=== PATIENT | male | born 1990 | race Caucasian/White ===

== ENCOUNTER 2023-07-26 09:40 | Inpatient (IN) | payer OTHER, MEDICAID ==
[2023-07-26] VITALS (8 sets, daily range): BP systolic 111–132; BP diastolic 71–79; PULSE 62–71; RESP 18–20; TEMP 97.6–98.2; O2SAT 95–100
[~2023-07-26] VITALS: Ht 165.1 cm; Wt 75.3 kg
[2023-07-26] MEDS ORDERED: AMPICILLIN/SULBACTAM 3 GM in NACL 0.9% 100 ML IV ONE (10:20)
[2023-07-26] MEDS ORDERED: NACL 0.9% 1,000 ML IV SCH (10:20)
[2023-07-26] MEDS ORDERED: AZITHROMYCIN 250 MG TAB PO ONE (10:20)
[2023-07-26] MEDS ORDERED: KETOROLAC 30 MG/ML VIAL IVP ONE (10:30)
[2023-07-26] MEDS ORDERED: diphenhydrAMINE 50 MG/ML VIAL IVP ONE (10:30)
[2023-07-26 10:40] LABS: BASOPHILS % (AUTO) 0.1 % (0.0-2.0); EOSINOPHILS # (AUTO) 0.1 K/uL (0-0.4); EOSINOPHILS % (AUTO) 0.4 % (0.0-4.0); HEMATOCRIT 38.9 % (36-52); HEMOGLOBIN 12.8 g/dL (12.0-18.0); LYMPHOCYTES # (AUTO) 0.8 K/uL (2.0-11.5); LYMPHOCYTES % (AUTO) 5.8 % (20.5-51.1); MEAN CORPUSCULAR HEMOGLOBIN 30 pg (27-31); MEAN CORPUSCULAR HGB CONC 33 g/dL (33-37); MEAN CORPUSCULAR VOLUME 91.3 fL (80-94); MONOCYTES # (AUTO) 0.8 K/uL (0.8-1.0); MONOCYTES % (AUTO) 5.3 % (1.7-9.3); NEUTROPHILS # (AUTO) 12.8 K/uL (1.8-7.7); NEUTROPHILS % (AUTO) 88.4 % (42.2-75.2); PLATELET COUNT (AUTO) 162 K/uL (140-450); RED BLOOD CELL COUNT(AUTO) 4.26 MIL/uL (4.20-6.10); RED CELL DISTRIBUTION WIDTH 13.1 % (11.6-13.7); WHITE BLOOD COUNT (AUTO) 14.5 K/uL (4.8-10.8)
[2023-07-26 10:56] LABS: ALBUMIN 3.3 g/dL (3.4-5.0); ANION GAP 12.9 (8-16); CALCIUM 8.2 mg/dL (8.5-10.1); CARBON DIOXIDE 26.2 mmol/L (21-32); CREATININE 0.9 mg/dL (0.6-1.3); POTASSIUM 3.1 mmol/L (3.5-5.1); TOTAL BILIRUBIN 0.5 mg/dL (0.0-1.0); TOTAL PROTEIN, SERUM 6.9 g/dL (6.4-8.2)
[2023-07-26] MEDS ORDERED: POTASSIUM CHLORIDE 10 MEQ TABER PO ONE (11:05)
[2023-07-26 11:07] LABS: LACTIC ACID 1.4 mmol/L (0.4-2.0)
[2023-07-26] MEDS ORDERED: AMPICILLIN/SULBACTAM 3 GM VIAL ONE (11:07)
[2023-07-26] MEDS ORDERED: ACETAMINOPHEN 325 MG TAB PO PRN (14:10)
[2023-07-26] MEDS ORDERED: ONDANSETRON 4 MG/2 ML VIAL IVP PRN (14:10)
[2023-07-26] MEDS: NACL 0.9% 1,000 ML IV SCH ×2 (14:52→23:43)
[2023-07-26] MEDS: MORPHINE SULFATE 2 MG/ML SYR IVP PRN (15:44)
[2023-07-26] MEDS ORDERED: AMPICILLIN/SULBACTAM 1.5 GM VIAL ONE ×2 (18:11→23:34)
[2023-07-26] MEDS: AMPICILLIN/SULBACTAM 1.5 GM in NACL 0.9% 50 ML IV SCH ×2 (18:25→23:39)
[2023-07-27] MEDS: MORPHINE SULFATE 2 MG/ML SYR IVP PRN ×4 (03:48→20:39)
[2023-07-27] MEDS ORDERED: AMPICILLIN/SULBACTAM 1.5 GM VIAL ONE (05:09)
[2023-07-27] MEDS: AMPICILLIN/SULBACTAM 1.5 GM in NACL 0.9% 50 ML IV SCH ×3 (05:14→17:02)
[2023-07-27 07:10] LABS: BASOPHILS % (AUTO) 0.1 % (0.0-2.0); EOSINOPHILS % (AUTO) 0.3 % (0.0-4.0); HEMATOCRIT 38.3 % (36-52); HEMOGLOBIN 12.8 g/dL (12.0-18.0); LYMPHOCYTES # (AUTO) 1.1 K/uL (2.0-11.5); LYMPHOCYTES % (AUTO) 9.3 % (20.5-51.1); MEAN CORPUSCULAR HEMOGLOBIN 30 pg (27-31); MEAN CORPUSCULAR HGB CONC 34 g/dL (33-37); MONOCYTES # (AUTO) 0.8 K/uL (0.8-1.0); MONOCYTES % (AUTO) 6.6 % (1.7-9.3); NEUTROPHILS # (AUTO) 10.3 K/uL (1.8-7.7); NEUTROPHILS % (AUTO) 83.7 % (42.2-75.2); PLATELET COUNT (AUTO) 165 K/uL (140-450); RED BLOOD CELL COUNT(AUTO) 4.21 MIL/uL (4.20-6.10); RED CELL DISTRIBUTION WIDTH 13.4 % (11.6-13.7); WHITE BLOOD COUNT (AUTO) 12.3 K/uL (4.8-10.8)
[2023-07-27 07:45] LABS: ALBUMIN 2.9 g/dL (3.4-5.0); ANION GAP 11.6 (8-16); CARBON DIOXIDE 27.3 mmol/L (21-32); CREATININE 0.8 mg/dL (0.6-1.3); MAGNESIUM 1.5 mg/dL (1.8-2.4); PHOSPHORUS 2.2 mg/dL (2.5-4.9); POTASSIUM 3.9 mmol/L (3.5-5.1); TOTAL BILIRUBIN 0.5 mg/dL (0.0-1.0); TOTAL PROTEIN, SERUM 6.4 g/dL (6.4-8.2)
[2023-07-27 08:00] VITALS: BP 126/75; PULSE 60; PULSE 61; RESP 20; TEMP 97.6; O2SAT 100
[2023-07-27] MEDS: MAGNESIUM OXIDE 400 MG TAB PO PRN (10:37)
[2023-07-27] MEDS: NACL 0.9% 1,000 ML IV SCH ×2 (10:39→20:44)
[2023-07-27 16:00] VITALS: BP 114/63; PULSE 72; RESP 20; TEMP 99; O2SAT 100
[2023-07-27 20:00] VITALS: PULSE 72; RESP 18; O2SAT 95
[2023-07-27] MEDS ORDERED: VANCOMYCIN PER PHARMACY MC PRN (20:10)
[2023-07-27 21:40] VITALS: BP 157/77; PULSE 80; RESP 19; TEMP 98; O2SAT 95
[2023-07-28] MEDS ORDERED: AMPICILLIN/SULBACTAM 3 GM VIAL ONE ×2 (00:46→05:13)
[2023-07-28] MEDS: AMPICILLIN/SULBACTAM 3 GM in NACL 0.9% 100 ML IV SCH ×4 (00:52→17:03)
[2023-07-28] MEDS ORDERED: VANCOMYCIN 1.25GM PREMIX 250 ML IV ONE (02:00)
[2023-07-28] MEDS ORDERED: VANCOMYCIN 1,000 MG VIAL ONE (03:26)
[2023-07-28 04:00] VITALS: BP 124/65; PULSE 62; RESP 16; TEMP 97.9; O2SAT 100
[2023-07-28] MEDS: NACL 0.9% 1,000 ML IV SCH (06:10)
[2023-07-28 06:30] LABS: BASOPHILS % (AUTO) 0.1 % (0.0-2.0); EOSINOPHILS % (AUTO) 0.4 % (0.0-4.0); HEMATOCRIT 37.4 % (36-52); HEMOGLOBIN 12.6 g/dL (12.0-18.0); LYMPHOCYTES # (AUTO) 1.3 K/uL (2.0-11.5); LYMPHOCYTES % (AUTO) 11.5 % (20.5-51.1); MEAN CORPUSCULAR HEMOGLOBIN 31 pg (27-31); MEAN CORPUSCULAR HGB CONC 34 g/dL (33-37); MEAN CORPUSCULAR VOLUME 90.8 fL (80-94); MONOCYTES # (AUTO) 0.9 K/uL (0.8-1.0); MONOCYTES % (AUTO) 8.3 % (1.7-9.3); NEUTROPHILS # (AUTO) 8.7 K/uL (1.8-7.7); NEUTROPHILS % (AUTO) 79.7 % (42.2-75.2); PLATELET COUNT (AUTO) 179 K/uL (140-450); RED BLOOD CELL COUNT(AUTO) 4.12 MIL/uL (4.20-6.10); RED CELL DISTRIBUTION WIDTH 12.9 % (11.6-13.7)
[2023-07-28 07:05] LABS: ALBUMIN 2.7 g/dL (3.4-5.0); ANION GAP 8.7 (8-16); CALCIUM 8.1 mg/dL (8.5-10.1); CARBON DIOXIDE 28.1 mmol/L (21-32); CREATININE 0.9 mg/dL (0.6-1.3); MAGNESIUM 1.6 mg/dL (1.8-2.4); PHOSPHORUS 2.6 mg/dL (2.5-4.9); POTASSIUM 3.8 mmol/L (3.5-5.1); TOTAL BILIRUBIN 0.4 mg/dL (0.0-1.0); TOTAL PROTEIN, SERUM 6.2 g/dL (6.4-8.2)
[2023-07-28] MEDS: MAGNESIUM OXIDE 400 MG TAB PO PRN (08:09)
[2023-07-28] MEDS: HYDROcodone/APAP 5/325 MG 1 TAB TAB PO PRN (08:10)
[2023-07-28 09:08] VITALS: BP 120/90; PULSE 64; RESP 18; TEMP 97.5; O2SAT 100
[2023-07-28 09:10] VITALS: PULSE 69; RESP 18; O2SAT 100
[2023-07-28] MEDS ORDERED: CALCIUM GLUC 1 GM/50 mL NS BAG 50 ML IV SCH (10:40)
[2023-07-28] MEDS ORDERED: MAG SULF 2000 MG/WATER PREMIX 50 ML IV SCH (10:40)
[2023-07-28] MEDS: MORPHINE SULFATE 2 MG/ML SYR IVP PRN ×2 (12:05→16:06)
[2023-07-28] MEDS: VANCOMYCIN 1.25GM PREMIX 250 ML IV SCH (13:33)
[2023-07-28 15:06] VITALS: BP 106/58; PULSE 93; RESP 18; TEMP 98.3; O2SAT 98
[2023-07-28 20:00] VITALS: PULSE 82; RESP 18; O2SAT 97
[2023-07-29] MEDS: AMPICILLIN/SULBACTAM 3 GM in NACL 0.9% 100 ML IV SCH ×4 (00:28→18:52)
[2023-07-29] MEDS: VANCOMYCIN 1.25GM PREMIX 250 ML IV SCH ×2 (02:15→14:40)
[2023-07-29 04:00] VITALS: BP 109/79; PULSE 64; RESP 17; TEMP 97.9; O2SAT 99
[2023-07-29] MEDS: MORPHINE SULFATE 2 MG/ML SYR IVP PRN ×3 (05:49→18:00)
[2023-07-29 06:54] LABS: BASOPHILS % (AUTO) 0.2 % (0.0-2.0); EOSINOPHILS # (AUTO) 0.1 K/uL (0-0.4); EOSINOPHILS % (AUTO) 1.6 % (0.0-4.0); HEMATOCRIT 37.2 % (36-52); HEMOGLOBIN 12.3 g/dL (12.0-18.0); LYMPHOCYTES # (AUTO) 1.4 K/uL (2.0-11.5); LYMPHOCYTES % (AUTO) 21.2 % (20.5-51.1); MEAN CORPUSCULAR HEMOGLOBIN 30 pg (27-31); MEAN CORPUSCULAR HGB CONC 33 g/dL (33-37); MEAN CORPUSCULAR VOLUME 91.2 fL (80-94); MONOCYTES # (AUTO) 0.7 K/uL (0.8-1.0); MONOCYTES % (AUTO) 10.1 % (1.7-9.3); NEUTROPHILS # (AUTO) 4.4 K/uL (1.8-7.7); NEUTROPHILS % (AUTO) 66.9 % (42.2-75.2); PLATELET COUNT (AUTO) 202 K/uL (140-450); RED BLOOD CELL COUNT(AUTO) 4.07 MIL/uL (4.20-6.10); RED CELL DISTRIBUTION WIDTH 13.1 % (11.6-13.7); WHITE BLOOD COUNT (AUTO) 6.5 K/uL (4.8-10.8)
[2023-07-29 07:03] LABS: CALCIUM 8.3 mg/dL (8.5-10.1); CREATININE 0.9 mg/dL (0.6-1.3)
[2023-07-29 08:00] VITALS: PULSE 56; RESP 18; O2SAT 97
[2023-07-29 20:00] VITALS: BP 117/79; PULSE 74; RESP 18; TEMP 98.2; O2SAT 97; O2SAT 99
[2023-07-30] MEDS: AMPICILLIN/SULBACTAM 3 GM in NACL 0.9% 100 ML IV SCH ×4 (00:58→21:47)
[2023-07-30] MEDS: MORPHINE SULFATE 2 MG/ML SYR IVP PRN ×3 (01:16→15:33)
[2023-07-30] MEDS: VANCOMYCIN 1.25GM PREMIX 250 ML IV SCH ×2 (02:25→15:28)
[2023-07-30 04:00] VITALS: BP 112/68; PULSE 72; RESP 18; TEMP 96.9; O2SAT 98
[2023-07-30 06:41] LABS: BASOPHILS % (AUTO) 0.2 % (0.0-2.0); EOSINOPHILS # (AUTO) 0.1 K/uL (0-0.4); EOSINOPHILS % (AUTO) 1.6 % (0.0-4.0); HEMATOCRIT 39.2 % (36-52); HEMOGLOBIN 13.2 g/dL (12.0-18.0); LYMPHOCYTES # (AUTO) 1.7 K/uL (2.0-11.5); LYMPHOCYTES % (AUTO) 32.4 % (20.5-51.1); MEAN CORPUSCULAR HEMOGLOBIN 31 pg (27-31); MEAN CORPUSCULAR HGB CONC 34 g/dL (33-37); MONOCYTES # (AUTO) 0.5 K/uL (0.8-1.0); MONOCYTES % (AUTO) 10.6 % (1.7-9.3); NEUTROPHILS # (AUTO) 2.8 K/uL (1.8-7.7); NEUTROPHILS % (AUTO) 55.2 % (42.2-75.2); PLATELET COUNT (AUTO) 237 K/uL (140-450); RED BLOOD CELL COUNT(AUTO) 4.31 MIL/uL (4.20-6.10); RED CELL DISTRIBUTION WIDTH 13.2 % (11.6-13.7); WHITE BLOOD COUNT (AUTO) 5.1 K/uL (4.8-10.8)
[2023-07-30 06:58] LABS: ALBUMIN 2.9 g/dL (3.4-5.0); ANION GAP 10.8 (8-16); CALCIUM 8.8 mg/dL (8.5-10.1); CARBON DIOXIDE 28.7 mmol/L (21-32); CREATININE 0.9 mg/dL (0.6-1.3); POTASSIUM 4.5 mmol/L (3.5-5.1); TOTAL BILIRUBIN 0.2 mg/dL (0.0-1.0)
[2023-07-30 08:00] VITALS: PULSE 76; RESP 18; O2SAT 96
[2023-07-30] MEDS ORDERED: LIDOCAINE/EPI MPF 1%1:200000 30 ML VIAL INJ ONE (18:07)
[2023-07-30] MEDS ORDERED: BUPIVACAINE-MPF 0.25% 30 ML VIAL INJ ONE (18:07)
[2023-07-30] MEDS ORDERED: MIDAZOLAM 2 MG/2 ML VIAL ONE (19:00)
[2023-07-30] MEDS ORDERED: fentaNYL citrate 0.05 MG/ML VIAL ONE (19:01)
[2023-07-30] MEDS ORDERED: ROCURONIUM 50 MG/5 ML VIAL IV ONE (19:02)
[2023-07-30] MEDS ORDERED: PROPOFOL 200 MG/20 ML VIAL IV ONE (19:03)
[2023-07-30] MEDS ORDERED: SUCCINYLCHOLINE CHLORIDE 200 MG/10 ML VIAL IVP ONE (19:03)
[2023-07-30] MEDS ORDERED: ONDANSETRON 4 MG/2 ML VIAL ONE (19:49)
[2023-07-30] MEDS: HYDROmorphone 1 MG/ML AMP IVP PRN ×4 (20:00→20:30)
[2023-07-30] MEDS ORDERED: HYDROmorphone PFS 2 MG/ML SYR ONE (20:04)
[2023-07-30] MEDS ORDERED: ONDANSETRON 4 MG/2 ML VIAL IVP PRN (20:05)
[2023-07-30 21:00] VITALS: BP 117/68; PULSE 68; RESP 18; TEMP 97.4; O2SAT 96; O2SAT 99
[2023-07-30] MEDS: HYDROcodone/APAP 5/325 MG 1 TAB TAB PO PRN (21:47)
[2023-07-31] VITALS: BP 102/62; PULSE 61; RESP 18; TEMP 97.3; O2SAT 98
[2023-07-31] MEDS: AMPICILLIN/SULBACTAM 3 GM in NACL 0.9% 100 ML IV SCH ×4 (01:23→18:13)
[2023-07-31] MEDS: VANCOMYCIN 1.25GM PREMIX 250 ML IV SCH ×2 (02:16→13:46)
[2023-07-31 04:00] VITALS: BP 111/63; PULSE 58; RESP 18; TEMP 97.2; O2SAT 98
[2023-07-31 06:54] LABS: BASOPHILS % (AUTO) 0.1 % (0.0-2.0); EOSINOPHILS # (AUTO) 0.1 K/uL (0-0.4); EOSINOPHILS % (AUTO) 1.1 % (0.0-4.0); HEMATOCRIT 40.8 % (36-52); HEMOGLOBIN 13.6 g/dL (12.0-18.0); LYMPHOCYTES # (AUTO) 1.4 K/uL (2.0-11.5); LYMPHOCYTES % (AUTO) 27.1 % (20.5-51.1); MEAN CORPUSCULAR HEMOGLOBIN 30 pg (27-31); MEAN CORPUSCULAR HGB CONC 33 g/dL (33-37); MEAN CORPUSCULAR VOLUME 90.6 fL (80-94); MONOCYTES # (AUTO) 0.7 K/uL (0.8-1.0); MONOCYTES % (AUTO) 12.9 % (1.7-9.3); NEUTROPHILS # (AUTO) 3.1 K/uL (1.8-7.7); NEUTROPHILS % (AUTO) 58.8 % (42.2-75.2); PLATELET COUNT (AUTO) 276 K/uL (140-450); RED BLOOD CELL COUNT(AUTO) 4.51 MIL/uL (4.20-6.10); RED CELL DISTRIBUTION WIDTH 13.1 % (11.6-13.7); WHITE BLOOD COUNT (AUTO) 5.4 K/uL (4.8-10.8)
[2023-07-31 07:56] LABS: ANION GAP 12.3 (8-16); CALCIUM 8.9 mg/dL (8.5-10.1); CARBON DIOXIDE 30.7 mmol/L (21-32); CREATININE 0.9 mg/dL (0.6-1.3)
[2023-07-31 08:00] VITALS: BP 121/68; PULSE 56; PULSE 98; RESP 16; RESP 19; TEMP 97.8; O2SAT 96; O2SAT 98
[2023-07-31] MEDS: HYDROmorphone 1 MG/ML AMP IVP PRN ×2 (09:57→14:13)
[2023-07-31] MEDS: HYDROcodone/APAP 5/325 MG 1 TAB TAB PO PRN ×2 (14:30→21:03)
[2023-07-31 20:00] VITALS: PULSE 72; RESP 18; O2SAT 97
[2023-07-31 22:00] VITALS: BP 135/60; PULSE 72; RESP 18; TEMP 97.7; O2SAT 100
[2023-08-01] MEDS: AMPICILLIN/SULBACTAM 3 GM in NACL 0.9% 100 ML IV SCH ×5 (00:06→23:53)
[2023-08-01] MEDS: VANCOMYCIN 1.25GM PREMIX 250 ML IV SCH ×2 (02:04→15:17)
[2023-08-01 04:00] VITALS: BP 106/60; PULSE 57; RESP 17; TEMP 97.7; O2SAT 100
[2023-08-01 06:51] LABS: BASOPHILS % (AUTO) 0.2 % (0.0-2.0); EOSINOPHILS # (AUTO) 0.1 K/uL (0-0.4); EOSINOPHILS % (AUTO) 1.8 % (0.0-4.0); HEMATOCRIT 40.1 % (36-52); HEMOGLOBIN 13.2 g/dL (12.0-18.0); LYMPHOCYTES # (AUTO) 1.5 K/uL (2.0-11.5); LYMPHOCYTES % (AUTO) 25.4 % (20.5-51.1); MEAN CORPUSCULAR HEMOGLOBIN 30 pg (27-31); MEAN CORPUSCULAR HGB CONC 33 g/dL (33-37); MONOCYTES # (AUTO) 0.7 K/uL (0.8-1.0); MONOCYTES % (AUTO) 11.4 % (1.7-9.3); NEUTROPHILS # (AUTO) 3.7 K/uL (1.8-7.7); NEUTROPHILS % (AUTO) 61.2 % (42.2-75.2); PLATELET COUNT (AUTO) 292 K/uL (140-450); RED CELL DISTRIBUTION WIDTH 13.1 % (11.6-13.7)
[2023-08-01 07:09] LABS: ANION GAP 11.4 (8-16); CALCIUM 8.3 mg/dL (8.5-10.1); CARBON DIOXIDE 30.2 mmol/L (21-32); CREATININE 0.9 mg/dL (0.6-1.3); POTASSIUM 4.6 mmol/L (3.5-5.1)
[2023-08-01 08:00] VITALS: PULSE 65; RESP 17; O2SAT 100
[2023-08-01 12:00] VITALS: BP 108/60; PULSE 73; RESP 17; TEMP 98.9; O2SAT 100
[2023-08-01] MEDS: GAUZE TP SCH (13:00)
[2023-08-01] MEDS ORDERED: VANCOMYCIN PER PHARMACY MC PRN (16:20)
[2023-08-01 20:00] VITALS: BP 126/54; PULSE 82; RESP 17; RESP 18; TEMP 97.2; O2SAT 100; O2SAT 99
[2023-08-02] MEDS: GAUZE TP SCH ×2 (01:00→12:46)
[2023-08-02] MEDS: VANCOMYCIN 1.25GM PREMIX 250 ML IV SCH ×2 (02:11→13:04)
[2023-08-02 04:00] VITALS: BP 101/52; PULSE 67; RESP 17; TEMP 97.8; O2SAT 100
[2023-08-02] MEDS: AMPICILLIN/SULBACTAM 3 GM in NACL 0.9% 100 ML IV SCH ×2 (05:51→11:34)
[2023-08-02 08:33] VITALS: BP 115/64; PULSE 65; RESP 18; TEMP 98.3; O2SAT 98
[2023-08-02 08:34] VITALS: PULSE 65; RESP 18; O2SAT 98
[2023-08-02 10:02] VITALS: BP 115/64; PULSE 65; RESP 18; TEMP 98.3
[2023-08-02] MEDS: HYDROcodone/APAP 5/325 MG 1 TAB TAB PO PRN (11:38)
[2023-08-02 13:14] LABS: BASOPHILS % (AUTO) 0.3 % (0.0-2.0); EOSINOPHILS % (AUTO) 0.5 % (0.0-4.0); HEMATOCRIT 41.8 % (36-52); HEMOGLOBIN 13.8 g/dL (12.0-18.0); LYMPHOCYTES # (AUTO) 1.8 K/uL (2.0-11.5); LYMPHOCYTES % (AUTO) 20.9 % (20.5-51.1); MEAN CORPUSCULAR HEMOGLOBIN 30 pg (27-31); MEAN CORPUSCULAR HGB CONC 33 g/dL (33-37); MEAN CORPUSCULAR VOLUME 90.8 fL (80-94); MONOCYTES # (AUTO) 0.8 K/uL (0.8-1.0); MONOCYTES % (AUTO) 8.8 % (1.7-9.3); NEUTROPHILS % (AUTO) 69.5 % (42.2-75.2); PLATELET COUNT (AUTO) 341 K/uL (140-450); RED CELL DISTRIBUTION WIDTH 13.2 % (11.6-13.7); WHITE BLOOD COUNT (AUTO) 8.6 K/uL (4.8-10.8)
[2023-08-02 13:26] LABS: ANION GAP 12.1 (8-16); CALCIUM 8.9 mg/dL (8.5-10.1); CARBON DIOXIDE 29.2 mmol/L (21-32); CREATININE 1.1 mg/dL (0.6-1.3); POTASSIUM 4.3 mmol/L (3.5-5.1)
[2023-08-02] MEDS ORDERED: AMOX-999 PO (14:58)
[2023-08-02] MEDS ORDERED: SULF-58 PO (14:58)
== END 2023-08-02 15:45 | disposition home or self-care (01) | DRG 580 ==
LOC: MED 09:57 → MMU 14:11 → MTU 17:21
PROVIDERS: ADMIT Student in an Organized Health Care Education/Training Program; ATTEND Student in an Organized Health Care Education/Training Program
PROC: 0J910ZZ Drainage of Face Subcutaneous Tissue and Fascia, Open Approach (ICD-10-PCS; 2023-07-30)
PROC: 0C90XZZ Drainage of Upper Lip, External Approach (ICD-10-PCS; principal; 2023-07-30 18:30)
DX: L03.211 Cellulitis of face (principal); E44.0 Moderate protein-calorie malnutrition; L02.01 Cutaneous abscess of face; E83.51 Hypocalcemia; E83.42 Hypomagnesemia; B95.62 Methicillin resistant Staphylococcus aureus infection as the cause of diseases classified elsewhere; W55.03XA Scratched by cat, initial encounter; Y93.89 Activity, other specified; Y92.89 Other specified places as the place of occurrence of the external cause; Y99.8 Other external cause status; Z68.27 Body mass index [BMI] 27.0-27.9, adult
CPT/HCPCS: 36415; 70487; 80048; 80053; 80202; 83605; 83735; 84100; 85025; 85651; 86140; 87040; 87070; 87075; 87186; 87205; 96361; 96365; 96375; 99285; J0295; J0330; J0610; J1170; J1200; J1885; J2001; J2250; J2270; J2405; J2704; J3010; J3370; J3372; J3475; J3490; J7030; J7120; Q0163; Q9967